=== PATIENT | male | born 1990 | race Caucasian/White ===

== ENCOUNTER 2024-01-05 15:12 | Emergency (ER) | payer MEDICAID ==
[~2024-01-05] VITALS: Ht 185.4 cm; Wt 99.8 kg
[2024-01-05 15:27] VITALS: BP 153/92; PULSE 98; RESP 18; TEMP 98.4; O2SAT 99
[2024-01-05] MEDS ORDERED: CEPH-588 PO (17:23)
[2024-01-05] MEDS ORDERED: SULF-59 PO (17:23)
[2024-01-05] MEDS ORDERED: IBUP-2213 PO (17:23)
[2024-01-05] MEDS ORDERED: LIDOCAINE MPF 1% 5 ML ONE (17:33)
[2024-01-05] MEDS ORDERED: cefTRIAXone 1,000 MG VIAL ONE (17:33)
[2024-01-05] MEDS: KETOROLAC 30 MG/ML VIAL IM ONE (17:38)
[2024-01-05] MEDS: cefTRIAXone 1,000 MG in LIDOCAINE MPF 1% 2.1 ML IM ONE (17:45)
== END 2024-01-05 18:07 | disposition home or self-care (01) ==
LOC: MED 15:12
DX: L03.312 Cellulitis of back [any part except buttock and flank] (principal); Z79.899 Other long term (current) drug therapy
CPT/HCPCS: 96372; 99284; J0696; J1885; J2001